=== PATIENT | female | born 1950 | race Native Hawaiian/Other Pacific Islander ===

== ENCOUNTER 2022-06-06 10:49 | Outpatient (CLI) | payer OTHER, SELFPAY | END 2022-06-06 10:50 | disposition home or self-care (01) | PROVIDERS: PCP Family Medicine; Visit Provider Surgery | DX: E11.622 Type 2 diabetes mellitus with other skin ulcer (principal); L97.812 Non-pressure chronic ulcer of other part of right lower leg with fat layer exposed | CPT/HCPCS: 87070; 97597; 99203 ==

== ENCOUNTER 2022-06-13 09:31 | Outpatient (CLI) | payer OTHER, SELFPAY | END 2022-06-13 09:32 | disposition home or self-care (01) | LOC: WOUND 09:31 | PROVIDERS: PCP Family Medicine; Visit Provider Surgery | DX: E11.622 Type 2 diabetes mellitus with other skin ulcer (principal); L97.812 Non-pressure chronic ulcer of other part of right lower leg with fat layer exposed; Z79.84 Long term (current) use of oral hypoglycemic drugs | CPT/HCPCS: 97597 ==

== ENCOUNTER 2022-07-25 11:04 | Outpatient (CLI) | payer OTHER, SELFPAY | END 2022-07-25 11:05 | disposition home or self-care (01) | LOC: WOUND 11:04 | PROVIDERS: PCP Family Medicine; Visit Provider Surgery | DX: E11.622 Type 2 diabetes mellitus with other skin ulcer (principal); L97.812 Non-pressure chronic ulcer of other part of right lower leg with fat layer exposed; R41.0 Disorientation, unspecified; Z79.84 Long term (current) use of oral hypoglycemic drugs; Z79.85 Long-term (current) use of injectable non-insulin antidiabetic drugs | CPT/HCPCS: 99213 ==

== ENCOUNTER 2022-07-25 12:02 | Observation (INO) | payer OTHER, SELFPAY ==
[2022-07-25] VITALS (11 sets, daily range): BP systolic 132–179; BP diastolic 44–162; PULSE 58–64; RESP 14–18; TEMP 36.1–36.9; O2SAT 96–98; BMI 46.0; BMI 47.5
--- NOTE | 2022-07-25 12:19 | ED_ITS ---
HPI - Neuro Symptoms/Deficit General Time Seen by Provider: 12:19 Date Seen: 07/25/22 Chief Complaint: Neuro Symptoms/Altered Deficit Stated Complaint: From wound clinic Time Seen by Provider: 07/25/22 12:08 Source: patient, RN notes reviewed, old records reviewed and other (spoke with Dr. Lin regarding patient) Mode of arrival: ambulatory Limitations: no limitations History of Present Illness HPI Narrative: This patient is a 71-year-old female sent up from wound clinic by Dr. Lin. Patient was there getting a recurrent wound treatment for a diabetic ulcer, is noted to be almost healed. Dr. Lin Was about 10 minutes behind getting into the room and the patient fell sleep. She woke up acutely confused, did not know where she was, was afraid, was telling DrSandy: She did not know who she was and she has met her on multiple occasions before. She was asking her to not touch her. Last week when she was in for her wound care she had told nursing staff that she was having memory issues and was afraid to tell anybody, was noted to have gotten lost coming to her appointment. They were going to get a current set of vitals and blood sugar on her just to make sure they were okay. Dr. Lin I reviewed that it certainly was appropriate to send her up here with this acute change, is likely probably a memory issue problems such as dementia but will do a workup for altered mental status. She could not get a hold of her listed next of kin. Patient states she knows where she is that, ?in this room?. When ask her where this room is, she states in the city. She believes she is in [place]. She states she lives in [place]. She cannot tell me what year it is, cannot tell me what month it is, cannot tell me what the season is. She states she resides with her baby, cannot give me her daughter's name. She is looking through her phone, scrolling through and not seeming to find what she wants. She cannot tell me what she is looking for when I ask her. At the end of the interaction she starts stating that she is afraid to , she does not want to . I do reassure her that I do not feel she is dying at this time. Onset (ago): unknown Related Data Allergies Allergy/AdvReac Type Severity Reaction Status Date / Time No Known Drug Allergies Allergy Verified 07/25/22 12:06 Review of Systems Status of ROS: Reports: 10 or more systems reviewed and unremarkable except as noted in History and below Narrative: Does complain of head pain in the back of her head, states she did fall but cannot tell me details or timing of this. PFSH PFS Social History Smoking Status: Unknown if ever smoked service: No Exam Const: Vital Signs, click to edit/add: Vital Signs - 24 hr 07/25/22 12:07 07/25/22 13:15 07/25/22 13:30 Temperature 97 F L 98.5 F Pulse Rate [Pulse Oximeter] 60 58 L Respiratory Rate 18 16 Blood Pressure Blood Pressure [Ri ght Forearm] 133/57 L 150/74 H Pulse Oximetry 96 98 98 Oxygen Delivery Me thod Room Air Room Air 07/25/22 16:03 Temperature Pulse Rate [Pulse Oximeter] Respiratory Rate Blood Pressure 179/162 H Blood Pressure [Ri ght Forearm] Pulse Oximetry Oxygen Delivery Me thod Documenting provider has reviewed patient's vital signs: yes Common normals: no apparent distress, healthy appearing, alert and well nourished General appearance: cooperative, comfortable, well kempt and well developed Nutritional appearance: overweight Orientation/consciousness: Yes awake and Yes oriented to person HENMT: Common normals: normocephalic, head/scalp atraumatic, hearing grossly normal bilaterally, external ears normal, external nose normal, nasal mucous membranes and turbinates normal, moist oral mucous membranes, oropharynx normal, dentition normal and gingiva normal Head and scalp: normocephalic and atraumatic Nose: external nose normal and nasal mucous membranes and turbinates normal External ear: external ears normal Eye: Common normals: PERRL, EOMs intact bilaterally, conjunctivae normal, no scleral icterus and normal visual avila by confrontation Conjunctiva: conjunctiva(e) normal Pupil: PERRL Neck & C-Spine: Common normals: full ROM, no lymphadenopathy, supple, no meningeal signs, no JVD and thyroid normal Thyroid: thyroid normal Lymph: Lymphatic: no lymphadenopathy noted Resp: Common normals: normal respiratory effort, no retractions, no use of accessory muscles and clear to auscultation bilaterally Effort & inspection: able to speak in complete sentences Auscultation: clear to auscultation bilaterally Cardio: Common normals: no JVD, regular rate, regular rhythm, S1 normal heart sound, S2 normal heart sound, no gallops, no clicks and no murmurs Rate: regular rate Rhythm: regular rhythm Heart sounds: S1 normal and S2 normal GI: Common normals: Normal to inspection, nondistended, normoactive bowel sounds present, soft to palpation, non-tender, no hepatosplenomegaly and no masses Palpation: soft and no hepatosplenomegaly Extremity: Common normals: no calf tenderness and no pedal edema Other: Dressing over upper right lower extremity, not removed as this was just seen by wound clinic. Neuro: [place] Coma Scale: document GCS findings Nancy coma scale eye opening: Spontaneous (4) Nancy coma scale verbal response: Confused (4) Nancy coma scale motor response: Obey commands (6) [place] coma scale total score: 14 Common normals: CN's II-XII intact bilaterally, moves all extremities, no focal motor deficits, no sensory deficits noted and gait normal Sensorium/orientation: awake, alert and oriented to person Meningeal signs: no meningeal signs Speech: speech normal Motor exam: strength 5/5 throughout, no pronator drift, no tremor noted, no asterixis, no fasciculations and muscle tone normal throughout Other: Nursing staff notes she is doing some lip pursing type behaviors but I do not note this. Does not have continued blinking with glabellar tap. Psych: Common normals: cooperative and speech normal Appearance: well kempt Speech: normal speech Course Course Hospital Course: Patient is a 71-year-old female with altered mental status with acute memory issues. Her motor and sensory exam is otherwise normal. Will get a head CT to rule out acute intracranial trauma. Will do full complement of labs. My concern is that this is probably manifestation of memory issues such as dementia. We will attempt to contact her daughter again and will continue to do so till we are able to him make contact with her. Is obvious that this patient should not be driving. Consultations Consultation #1: Spoke with hospitalist Dr. Pena whom the case was reviewed with. Patient has been noting to be scrolling through her phone with nursing staff, showing a picture of her dog whom she actually lives with. Nursing staff actually talk to her daughter. She lives alone with her dog, has been living independently. She still has no idea where she is that, not oriented be on herself. She was unable to give nursing staff the name of her dog. Plan will be for admission for PT OT, consideration of MRI in the morning if felt to be appropriate per hospitalist. Given her current state, she is not safe to discharge to home alone and do think she needs more evaluation including functional assessments with PT and OT. Time: 16:12 Vital Signs Vital signs: Initial Vital Signs Temperature 97 F L 07/25/22 12:07 Temperature Source Temporal Artery Scan 07/25/22 12:07 Pulse Rate 60 07/25/22 12:07 Pulse Rhythm Regular 07/25/22 12:07 Respiratory Rate 18 07/25/22 12:07 Blood Pressure 133/57 L 07/25/22 12:07 Blood Pressure Mean 82 07/25/22 12:07 Blood Pressure Position Supine 07/25/22 12:07 Pulse Oximetry 96 07/25/22 12:07 Oxygen Delivery Method Room Air 07/25/22 12:07 Vital Signs Temperature 97 F L 07/25/22 12:07 Pulse Rate 60 07/25/22 12:07 Respiratory Rate 18 07/25/22 12:07 Blood Pressure 133/57 L 07/25/22 12:07 Pulse Oximetry 96 07/25/22 12:07 Oxygen Delivery Method Room Air 07/25/22 12:07 Temperature 98.5 F 07/25/22 13:30 Pulse Rate 58 L 07/25/22 13:30 Respiratory Rate 16 07/25/22 13:30 Blood Pressure 179/162 H 07/25/22 16:03 Pulse Oximetry 98 07/25/22 13:30 Oxygen Delivery Method Room Air 07/25/22 13:30 MDM - Neuro Symptoms/Deficit Lab Data Attestation: I reviewed the patient's lab results. Labs: Lab Results 07/25/22 07/25/22 07/25/22 Range/Units 12:30 13:15 15:40 WBC 9.73 (4.50-11.00) K/uL RBC 4.18 (4.00-5.20) m/uL Hgb 12.1 (12.0-16.0) gm/dL Hct 37.5 (33.0-51.0) % MCV 90 (80-100) fL MCH 29 (26-34) pg MCHC 32 (32-36) gm/dL RDW Coeff of Carie 12.4 (11.5-15.5) % Plt Count 350 (140-440) K/uL Neut % (Auto) 58.4 (42.0-72.0) % Lymph % (Auto) 34.2 (20-44) % [place] % (Auto) 5.7 (0.0-11.0) % Eos % (Auto) 1.3 (0.0-7.0) % Baso % (Auto) 0.2 (0.0-3.0) % Neut # (Auto) 5.68 (1.7-7.0) K/uL Lymph # (Auto) 3.33 H (0.90-2.90) K/uL [place] # (Auto) 0.60 (0.00-0.90) K/UL Eos # (Auto) 0.13 (0.00-0.50) K/uL Baso # (Auto) 0.02 (0.00-0.30) K/uL Sodium 138 (135-149) mmol/L Potassium 3.8 (3.6-5.1) mmol/L Chloride 102 (96-114) mmol/L Carbon Dioxide 26 (20-32) mmol/L BUN 20 (7-30) mg/dL Creatinine 0.7 (0.5-1.5) mg/dL Estimated Creat Clear 82.47 Estimated GFR 93 ml/min Glucose 154 H (60-115) mg/dL Lactate 1.1 (0.5-1.9) mmol/L Calcium 9.5 (8.4-10.6) mg/dL Total Bilirubin 0.3 (0.1-1.5) mg/dL AST 20 (12-35) U/L ALT 20 (4-35) U/L Alkaline Phosphatase 104 (40-150) U/L C-Reactive Protein 0.8 (0.5-1.0) mg/dL Total Protein 7.4 (6.0-8.3) g/dL Albumin 4.3 (3.3-5.0) g/dL TSH 2.130 (0.270-4.200) uIU/mL Urine Color Yellow (Yellow) Urine Appearance Slightly Cloudy A (Clear) Urine pH 5.5 (5.0-8.5) Ur Specific [place] 1.025 (1.000-1.030) Urine Protein Negative (Negative) Urine Glucose (UA) Trace A (Negative) Urine Ketones Negative (Negative) Urine Blood Negative (Negative) Urine Nitrite Negative (Negative) Urine Bilirubin Negative (Negative) Urine Urobilinogen 0.2 (0.2-1.0) Ur Leukocyte Esterase Negative (Negative) Urine RBC 0-2 (0-2) Urine WBC 2-5 (0-5) Ur Squamous Epith Cells Moderate A (None-Few) Urine Bacteria Few A (None) Ethyl Alcohol < 0.01 L (0.01-0.03) % Lab Acknowledgement 07/25/22 Range/Units Unknown WBC (4.50-11.00) K/uL RBC (4.00-5.20) m/uL Hgb (12.0-16.0) gm/dL Hct (33.0-51.0) % MCV (80-100) fL MCH (26-34) pg MCHC (32-36) gm/dL RDW Coeff of Carie (11.5-15.5) % Plt Count (140-440) K/uL Neut % (Auto) (42.0-72.0) % Lymph % (Auto) (20-44) % [place] % (Auto) (0.0-11.0) % Eos % (Auto) (0.0-7.0) % Baso % (Auto) (0.0-3.0) % Neut # (Auto) (1.7-7.0) K/uL Lymph # (Auto) (0.90-2.90) K/uL [place] # (Auto) (0.00-0.90) K/UL Eos # (Auto) (0.00-0.50) K/uL Baso # (Auto) (0.00-0.30) K/uL Sodium (135-149) mmol/L Potassium (3.6-5.1) mmol/L Chloride (96-114) mmol/L Carbon Dioxide (20-32) mmol/L BUN (7-30) mg/dL Creatinine (0.5-1.5) mg/dL Estimated Creat Clear Estimated GFR ml/min Glucose (60-115) mg/dL Lactate (0.5-1.9) mmol/L Calcium (8.4-10.6) mg/dL Total Bilirubin (0.1-1.5) mg/dL AST (12-35) U/L ALT (4-35) U/L Alkaline Phosphatase (40-150) U/L C-Reactive Protein (0.5-1.0) mg/dL Total Protein (6.0-8.3) g/dL Albumin (3.3-5.0) g/dL TSH (0.270-4.200) uIU/mL Urine Color (Yellow) Urine Appearance (Clear) Urine pH (5.0-8.5) Ur Specific [place] (1.000-1.030) Urine Protein (Negative) Urine Glucose (UA) (Negative) Urine Ketones (Negative) Urine Blood (Negative) Urine Nitrite (Negative) Urine Bilirubin (Negative) Urine Urobilinogen (0.2-1.0) Ur Leukocyte Esterase (Negative) Urine RBC (0-2) Urine WBC (0-5) Ur Squamous Epith Cells (None-Few) Urine Bacteria (None) Ethyl Alcohol (0.01-0.03) % Lab Acknowledgement Test Added Imaging Data CT scan - head: Attestation: I have reviewed the pertinent imaging results. ECG Data Attestation: I personally reviewed and interpreted this ECG as follows: (Sinus rhythm, 63 beats per minute. No ischemia, no infarct. QT corrected 433 milliseconds.) ECG interpretation date: 07/25/22 ECG interpretation time: 12:52 Discharge Plan Discharge Clinical Impression: Altered mental status Patient Disposition: Admitted As Inpatient Condition: Unchanged Follow Up/Referrals: Kacie Munguia MD [Primary Care Provider] -
--- NOTE | 2022-07-25 12:29 | CRLHL7_ITS ---
For Patients: As a result of the Cures Act, medical imaging exams and procedure reports are released immediately into your electronic medical record. You may view this report before your referring provider. If you have questions, please contact your health care provider. INDICATION: AMS, memory loss. History of meningioma.. TECHNIQUE: CT head without contrast. COMPARISON: None. FINDINGS: CSF spaces: Within normal limits for age. Brain parenchyma and extra-axial spaces: The velasco-white differentiation is normal. No sign of mass, hemorrhage, or midline shift. No extra-axial fluid collection. 2 centimeter mass at the left vertex slightly hyperdense with possible internal small calcifications. Dural tail is noted extending towards the sagittal sinus. No adjacent vasogenic edema identified. This lesion is consistent with provided history of meningioma. Skull base and calvarium: The visualized paranasal sinuses and mastoid air cells demonstrate no acute or significant findings. The visualized orbits are grossly unremarkable. No skull fractures. IMPRESSION: No acute intracranial process identified. Meningioma at the left posterior vertex. Please note that all CT scans at this facility use dose modulation, iterative reconstruction, and/or weight-based dosing when appropriate to reduce radiation dose to as low as reasonably achievable. Dictated by Octavia Jones MD @ 07/25/2022 2:28:33 PM (Electronically Signed)
[2022-07-25 13:13] LABS: Basophils Absolute Auto 0.02 K/uL (0.00-0.30); Basophils Percent Auto 0.2 % (0.0-3.0); Eosinophils Absolute Auto 0.13 K/uL (0.00-0.50); Eosinophils Percent Auto 1.3 % (0.0-7.0); Hematocrit 37.5 % (33.0-51.0); Hemoglobin* 12.1 gm/dL (12.0-16.0); Immature Granulocytes Abs Auto 0.02 K/uL (0.00-0.30); Immature Granulocytes Pct Auto 0.2 %; Lymphocytes Absolute Auto 3.33 K/uL (0.90-2.90); Lymphocytes Percent Auto 34.2 % (20-44); Mean Corpuscular HGB Conc 32 gm/dL (32-36); Mean Corpuscular Hemoglobin 29 pg (26-34); Mean Corpuscular Volume 90 fL (80-100); Monocytes Percent Auto 5.7 % (0.0-11.0); Neutrophils Absolute Auto 5.68 K/uL (1.7-7.0); Neutrophils Percent Auto 58.4 % (42.0-72.0); Platelet Count* 350 K/uL (140-440); RDW Coefficient of Variation % 12.4 % (11.5-15.5); Red Blood Count 4.18 m/uL (4.00-5.20); White Blood Count* 9.73 K/uL (4.50-11.00)
[2022-07-25 13:32] LABS: Albumin* 4.3 g/dL (3.3-5.0); Chloride* 102 mmol/L (96-114); Potassium* 3.8 mmol/L (3.6-5.1); Sodium* 138 mmol/L (135-149)
[2022-07-25 13:34] LABS: Bilirubin Total* 0.3 mg/dL (0.1-1.5); Creatinine* 0.7 mg/dL (0.5-1.5); Est. Creatinine Clearance* 82.47; Estimated Glomerular Filt Rate 93 ml/min
[2022-07-25 13:35] LABS: Alanine Aminotransferase* 20 U/L (4-35); Alkaline Phosphatase* 104 U/L (40-150); Aspartate Amino Transferase* 20 U/L (12-35); Blood Urea Nitrogen* 20 mg/dL (7-30); Calcium* 9.5 mg/dL (8.4-10.6); Carbon Dioxide* 26 mmol/L (20-32); Glucose* 154 mg/dL (60-115); Total Protein* 7.4 g/dL (6.0-8.3)
[2022-07-25 13:38] LABS: C Reactive Protein* 0.8 mg/dL (0.5-1.0)
--- NOTE | 2022-07-25 14:14 | PC.NURSE ---
pt has been resting, repeats I don't want to when Nurse in room, not responding appropriately to questions. When asked why or how she got to ED pt states I don't know, I was just here.
[2022-07-25 14:17] LABS: Ethanol* < 0.01 % (0.01-0.03)
[2022-07-25 14:25] LABS: Slide Review Reflex No
[2022-07-25 14:35] LABS: Lactate* 1.1 mmol/L (0.5-1.9)
--- NOTE | 2022-07-25 15:00 | PC.NURSE ---
spoke with patient's daughter Jenny, she is driving out of town currently. states pt had fall approx one month ago and has been having memory issues since. [facility] pt was not seen following fall. Pt lives alone per daughter. Daughter's name is Jenny # . Would like to be updated once all labs/CT results are completed.
[2022-07-25 15:48] LABS: Appearance Urine Slightly Cloudy (Clear); Bilirubin Urine Negative (Negative); Blood Urine Negative (Negative); Color Urine Yellow (Yellow); Glucose Urine Trace (Negative); Ketones Urine Negative (Negative); Leukocyte Esterase Urine Negative (Negative); Nitrite Urine Negative (Negative); Protein Urine Negative (Negative); Specific Gravity Urine 1.025 (1.000-1.030); Urobilinogen Urine 0.2 (0.2-1.0); pH Urine 5.5 (5.0-8.5)
[2022-07-25 16:08] LABS: Bacteria Urine Few; RBC Urine 0-2 (0-2); Squamous Epithelial Cell Urine Moderate (None-Few)
--- NOTE | 2022-07-25 16:49 | ED.NURSE ---
Pt Daughter, Jenny ([phone]) updated via at 1630, stating pt is staying at hospital overnight. Daughter would like update again in evening by staff. This information passed onto adjunct faculty for medical terminology
[2022-07-25 16:52] LABS: Lab Add On Test New Spec Needed
--- NOTE | 2022-07-25 16:58 | PM.IMHP1 ---
Hospitalist- H&P: HPI History of Present Illness Date Seen: 07/25/22 Chief complaint: From wound clinic Narrative: ADMISSION HISTORY AND PHYSICAL - HOSPITALIST Chief Complaint: Pamela is confused; mildly agitated HPI: 71-year-old female was present for a wound care appointment with Dr. Lin. Dr. Lin has been treating this patient since May of 2022 for a large chronic wound on her right anterior knee. The wound has been healing nicely. When Dr. Lin entered the room today, patient seem to abruptly awake from sleep. She was confused, nervous and this persisted while the treatment team tried to orient her and assess her. She was brought over to the ED when things did not normalize. No sign of acute CVA. She is having word finding difficulty in the ED and is confused about events and where she is today. She does report a history of getting confused in past. No chest pain, SOB, abdominal pain, headache, trouble swallowing, fever/chills, anxiety out of the norm. No N/V/D. ER COURSE: Head CT negative labs all reassuring vitals reassuring CODE STATUS: FULL CODE EMERGENCY CONTACT PLAN: DaughterJenny, at [phone] I've updated the PFSH, medications and allergies in the [place]se tabs. INVESTIGATIONS: LABS/MICRO/ECG/IMAGING 132/51. Pulse 61. Rest per 16. Afebrile. O2 sat 98% on room air. CBC is unremarkable. Normal WBC count, normal hemoglobin, normal platelets. Normal electrolytes and renal function. Glucose 154. A1c 6.7 Normal lactate Total CK 63 TSH normal B12, folate, thiamin all pending Troponin negative Ammonia pending. UA slightly cloudy. Negative nitrite. Negative leukocyte esterase. 2-5 white blood cells. Urine culture pending. Alcohol [address] No acute intracranial process identified. Meningioma at the left posterior vertex. Wound culture from May was skin molina EKG shows normal sinus rhythm REVIEW OF SYSTEMS: 12-point ROS completed with patient and negative unless otherwise stated in HPI or below. PHYSICAL EXAM: CONSTITUTIONAL: Pretty clear; knows she is in [facility] but not sure why she was taken from clinic to the ED. Does not really remember the clinic appt. VITAL SIGNS: see record. HEENT: Normocephalic, atraumatic. PERRL, EOMI, conjunctivae pink, no scleral icterus. Ears and nose externally normal. Pharynx normal. NECK: No JVD. No carotid bruit, no thyromegaly, no adenopathy. CHEST: Clear to auscultation bilaterally HEART: S1 and S2 normal. No harsh murmurs. Edema MUSCULOSKELETAL: No gross joint deformity or swelling. NEURO: Cranial nerves intact. Grossly intact. No asymmetric findings. SKIN: right knee, anterior, healing superficial ulceration. compared to pictures greatly improved. PSYCHIATRIC: Euthymic. ADMIT TO MEDSURG: FLOOR CARE DVT: Lovenox GI: PO intake Time spent: 70 minutes examining patient, conferring with family and patient, care staff, developing care plan [facility] Medical History (Updated 07/25/22 @ 17:50 by Thao Pena MD) Bee sting allergy ?Z91.030 - Bee allergy status (ICD-10) Nephrolithiasis ?N20.0 - Calculus of kidney (ICD-10) Hyperlipidemia ?E78.5 - Hyperlipidemia, unspecified (ICD-10) Chronic anxiety ?F41.9 - Anxiety disorder, unspecified (ICD-10) Neuropathy ?G62.9 - Polyneuropathy, unspecified (ICD-10) Dementia ?F03.90 - Unspecified dementia, unspecified severity, without behavioral disturbance, psychotic disturbance, mood disturbance, and anxiety (ICD-10) Hypertension ?I10 - Essential (primary) hypertension (ICD-10) Osteoarthritis ?M19.90 - Unspecified osteoarthritis, unspecified site (ICD-10) Morbid obesity ?E66.01 - Morbid (severe) obesity due to excess calories (ICD-10) LENNY (obstructive sleep apnea) ?G47.33 - Obstructive sleep apnea (adult) (pediatric) (ICD-10) CHF with unknown LVEF ?I50.9 - Heart failure, unspecified (ICD-10) Asthma ?J45.909 - Unspecified asthma, uncomplicated (ICD-10) Type 2 diabetes mellitus ?E11.9 - Type 2 diabetes mellitus without complications (ICD-10) Surgical History (Updated 07/25/22 @ 17:43 by Thao Pena MD) History of urethral stent Prolapse of anterior vaginal wall ?N81.10 - Cystocele, unspecified (ICD-10) History of bladder surgery ?Z98.890 - Other specified postprocedural states (ICD-10) History of section ?Z98.891 - History of uterine scar from previous surgery (ICD-10) Social History What is your current living situation: I presently have a place to live Problems where you live: no known problems Problems where you live details: N/A In the past 12 months, utilities in danger of being shut off: no In the past 12 mos, have been you worried that your food would run out before you had money to buy more?: never true In the past 12 mos, the food you bought just didn't last and you didn't have money to buy more?: never true Highest level of school completed/degree received: high school graduate Smoking Status: Former smoker Second hand tobacco smoke exposure: No How often do you have a drink containing alcohol: never How often do you have six or more drinks on one occasion: Never AUDIT-C Alcohol total score: 0 Non-prescribed substance use: denies use Caffeine: Yes (cup every other day) How often does anyone, including family, friends and others, physically hurt you: How often does anyone, including family, friends and others, insult or talk down to you: How often does anyone, including family, friends and others, threaten you with harm: How often does anyone, including family, friends and others, scream or curse at you: service: No Meds Home Medications and Allergies Allergies Allergy/AdvReac Type Severity Reaction Status Date / Time bee venom protein (honey bee) Allergy Unknown Verified 07/25/22 17:15 honey Allergy Unknown Verified 07/25/22 17:15 Sulfa (Sulfonamide Allergy Unknown Verified 07/25/22 17:15 Antibiotics) Exam Const: Vital Signs, click to edit/add: Vital Signs - 24 hr 07/25/22 12:07 07/25/22 13:15 07/25/22 13:30 Temperature 97 F L 98.5 F Pulse Rate Pulse Rate [Pulse Oximeter] 60 58 L Respiratory Rate 18 16 Blood Pressure Blood Pressure [Ri ght Forearm] 133/57 L 150/74 H Pulse Oximetry 96 98 98 Oxygen Delivery Me thod Room Air Room Air 07/25/22 16:03 07/25/22 16:32 07/25/22 16:45 Temperature Pulse Rate 61 Pulse Rate [Pulse Oximeter] Respiratory Rate Blood Pressure 179/162 H 132/51 L Blood Pressure [Ri ght Forearm] Pulse Oximetry Oxygen Delivery Me thod Hospitalist - H&P: Result Labs Labs: Short CBC 07/25/22 Range/Units 13:15 WBC 9.73 (4.50-11.00) K/uL Hgb 12.1 (12.0-16.0) gm/dL Hct 37.5 (33.0-51.0) % Plt Count 350 (140-440) K/uL BMP 07/25/22 12:30 Sodium 138 Potassium 3.8 Chloride 102 Carbon Dioxide 26 BUN 20 Creatinine 0.7 Glucose 154 H Calcium 9.5 Liver Function 07/25/22 Range/Units 12:30 Total Bilirubin 0.3 (0.1-1.5) mg/dL AST 20 (12-35) U/L ALT 20 (4-35) U/L Alkaline Phosphatase 104 (40-150) U/L Albumin 4.3 (3.3-5.0) g/dL Urine 07/25/22 Range/Units 15:40 Urine Color Yellow (Yellow) Urine Appearance Slightly Cloudy A (Clear) Urine pH 5.5 (5.0-8.5) Ur Specific [place] 1.025 (1.000-1.030) Urine Protein Negative (Negative) Urine Glucose (UA) Trace A (Negative) Assessment and Plan Assessment and plan (1) Altered mental status: Problem comment: ddx: worsening/fluctuating dementia of Ahlemeier's type, hypoglycemia, sleep deprivation observe overnight, brain MR in the am, OT/PT. continue home meds. telemetry. echo to be considered by day team if needed. Status: Acute (2) Dementia: Problem comment: awaiting records but med list reflects: seroquel 25mg at night donepezil 10mg at night namenda 10mg BID Status: Acute (3) Type 2 diabetes mellitus: Problem comment: A1C is 6.7 tonight trulicity, metformin -continue home meds, cover with SSI as needed. accuchecks ordered. Status: Acute (4) Chronic, continuous use of opioids: Problem comment: 5 mg norco 4x a day - chronic back pain. Status: Acute (5) Chronic sciatica: Problem comment: opioid dependent. no hx of surgery. Status: Acute (6) Chronic wound of extremity: Problem comment: right knee; started in 1/23, referred to wound care clinic in May. Dr. Lni advised dressing and wound care. much improved by July 2022. Status: Acute (7) Hypertension: Problem comment: metoprolol XL 25mg daily Status: Acute (8) LENNY (obstructive sleep apnea): Status: Acute (9) CHF with unknown LVEF: Problem comment: unclear history, no meds other than a betablocker and aspirin that correlate Status: Acute (10) Asthma: Problem comment: unclear hx - no meds on list Status: Acute (11) Hyperlipidemia: Problem comment: statin therapy Status: Acute (12) Chronic anxiety: Status: Acute (13) Morbid obesity: Status: Acute
[2022-07-25 17:08] LABS: Creatine Kinase* 63 U/L (41-117)
[2022-07-25 17:11] LABS: Hemoglobin A1C* 6.69 % (0-5.6)
[2022-07-25 17:25] LABS: Troponin I* < 0.01 ng/mL (0.01-0.04)
[2022-07-25 17:42] LABS: Ammonia* < 9.0 umol/L (13.1-30.0)
[2022-07-25 18:02] LABS: Vitamin B12* > 1000 pg/mL (243-894)
[2022-07-25 18:10] LABS: Amphetamine Screen Urine Negative (Negative); Barbiturate Screen Urine Negative (Negative); Benzodiazepines Screen Urine Negative (Negative); Cannabinoid Screen Urine Negative (Negative); Cocaine Screen Urine Negative (Negative); Methadone Screen Urine Negative (Negative); Methamphetamines Screen Urine Negative (Negative); Opiate Screen Urine Negative (Negative); Oxycodone Screen Urine Negative (Negative); Phencyclidine Screen Urine Negative (Negative)
--- NOTE | 2022-07-25 18:18 | PC.NURSE ---
Patient arrived to floor about 1650. Patient is pleasant and cooperative. Patient alert and oriented, could not report why she is here or time. Patient is vitally stable, lungs clear, BS WNL, IV intact. Patient independent/SBA. Patient rates lower back pain 5/10. Neuros intact. Tele=NSR. Patient blood sugar 105. Patient has wound below right knee with mepilex applied, C/D/I.
[2022-07-25 18:30] LABS: Tricyclic Antidepressant Urine POSITIVE (Negative)
[2022-07-25] MEDS: QUETIAPINE 25 MG TABLET PO (20:54)
[2022-07-25] MEDS: MEMANTINE HCL 10 MG TABLET PO (20:54)
[2022-07-25] MEDS: HYDROCODONE-ACETAMIN 5-325 MG 1 TAB PO (20:54)
[2022-07-25] MEDS: SIMVASTATIN 40 MG TABLET PO (20:54)
[2022-07-25] MEDS: ENOXAPARIN 40 MG/0.4 ML INJ SUBCUT (20:54)
[2022-07-25] MEDS: DONEPEZIL 10 MG TABLET PO (20:54)
[2022-07-25] MEDS: SODIUM CHLORIDE 0.9 % (FLUSH) 10 ML SYRINGE 5 ML IVF (20:55)
[2022-07-25] MEDS: METFORMIN ER 500 MG PO (20:55)
[2022-07-25] MEDS: CALCIUM CARBONATE 500 MG TABLET PO (20:55)
[2022-07-25] MEDS: POTASSIUM CHLORIDE 10 MEQ CAPSULE ER 20 MEQ PO (20:55)
[2022-07-26 03:00] VITALS: BP 147/67; PULSE 62; RESP 16; TEMP 36.4; O2SAT 96
[2022-07-26] MEDS: HYDROCODONE-ACETAMIN 5-325 MG 1 TAB PO ×2 (04:03→10:40)
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
[2022-07-26 08:05] VITALS: BP 128/54; PULSE 60; RESP 16; TEMP 36.4; O2SAT 97
[2022-07-26] MEDS: ASPIRIN 81 MG TABLET EC PO (09:44)
[2022-07-26] MEDS: METFORMIN ER 500 MG PO (09:44)
[2022-07-26] MEDS: POTASSIUM CHLORIDE 10 MEQ CAPSULE ER 20 MEQ PO (09:44)
[2022-07-26] MEDS: MEMANTINE HCL 10 MG TABLET PO (09:45)
[2022-07-26] MEDS: METOPROLOL SUCCINATE (XL) 25 MG TAB PO (09:45)
[2022-07-26] MEDS: CALCIUM CARBONATE 500 MG TABLET PO (09:45)
[2022-07-26 11:15] VITALS: BP 143/74; PULSE 62; RESP 18; TEMP 36.7; O2SAT 95
[2022-07-26 11:38] VITALS: BP 132/51; PULSE 58; RESP 16; TEMP 36.4
--- NOTE | 2022-07-26 12:14 | PM.DS1 ---
DS: Providers Provider Date Seen: 07/26/22 Date of admission: 07/25/22 16:44 Primary care physician: Kacie Munguia MD Admitting Clinician: Thao Pena MD Consults: Therapy teams Attending Physician on discharge: Hawa Mishra MD Date of Discharge: 07/26/22 DS: Diagnosis Discharge Diagnosis (1) Altered mental status: Status: Acute Problem details: - ddx: worsening/fluctuating dementia of Alzhemeier's type, delirium, stress response, hypoglycemia, sleep deprivation - patient back to baseline on hospital day 1, defers MRI or further workup - has close relationship with PCP and will f/u with her or one of her partners to discuss recommendations (driving evaluation, medication changes, etc) (2) Dementia: Status: Acute Problem details: - patient on Seroquel, Donepezil, Namenda with mild memory impairment noted during stay - daughter Jenny aware of diagnosis and recommendation of no driving until formal evaluation (3) Type 2 diabetes mellitus: Status: Acute Problem details: - A1C is 6.7 - on Trulicity, metformin (4) Chronic, continuous use of opioids: Status: Acute Problem details: - 5 mg norco 4x a day for chronic back pain (5) Chronic wound of extremity: Status: Acute Problem details: - right knee; started in 03/12, referred to wound care clinic in May, followed by Dr. Lin (6) Hypertension: Status: Acute Problem details: - metoprolol XL 25mg daily (7) Hyperlipidemia: Status: Acute Problem details: - on statin (8) Chronic anxiety: Status: Acute (9) Morbid obesity: Status: Acute DS: Summary Hospital Course Hospital Course: Pamela is a very pleasant 71-year-old female with a history of cognitive impairment (on Seroquel, Aricept, Namenda) who was brought to the emergency room from the wound clinic yesterday for altered mental status and acute memory loss. Imaging and labs in the emergency room were reassuring, and patient was back to baseline on hospital day 1. During stay, patient was seen by our therapy teams, who recommend no driving at this time given patient's dementia. Patient and daughter both verbalized understanding of this recommendation. We also discussed discontinuation of her Ambien; she is pre-contemplative regarding this recommendation. Upon discharge, patient deferred MRI and will follow-up with PCP. Status at Discharge Overall status at discharge: patient is progressing back to baseline Time Spent with Patient Time attestation: Total time spent providing and/or coordinating discharge services: Time spent: Greater than 30 minutes Specific discharge activities: Family updates (daughter Jenny by phone), medication reconciliation, review of recommendations Exam Narrative: Exam Narrative: GEN: Alert and oriented, nontoxic in appearance, answering questions appropriately HEENT: Normal external ears, EOMIs bilaterally, no scleral icterus CV: RRR, soft systolic murmur heard best at left sternal border, no radiation R: LCTA bilaterally without concerning wheezing, rales, or rhonchi Skin: No concerning skin lesions or rashes on exposed skin (LE wound not formally examined upon d/c given patient's outpatient wound care program) Neuro: No focal deficits, ambulating with a walker Psych: Intermittent memory loss evident, no anxiety or agitation Const: Vital Signs, click to edit/add: Vital Signs - 24 hr 07/25/22 13:15 07/25/22 13:30 07/25/22 16:03 Temperature 98.5 F Pulse Rate Pulse Rate [Pulse Oximeter] 58 L Respiratory Rate 16 Blood Pressure 179/162 H Blood Pressure [Ri ght Arm] Blood Pressure [Ri ght Forearm] 150/74 H Pulse Oximetry 98 98 Oxygen Delivery Me thod Room Air 07/25/22 16:32 07/25/22 16:45 07/25/22 16:59 Temperature Pulse Rate 61 Pulse Rate [Pulse Oximeter] Respiratory Rate 14 Blood Pressure 132/51 L Blood Pressure [Ri ght Arm] Blood Pressure [Ri ght Forearm] Pulse Oximetry 98 Oxygen Delivery Me thod Room Air 07/25/22 16:59 07/25/22 17:10 07/25/22 17:22 Temperature 97.7 F Pulse Rate 58 L Pulse Rate [Pulse Oximeter] 58 L Respiratory Rate 14 14 Blood Pressure Blood Pressure [Ri ght Arm] 138/65 Blood Pressure [Ri ght Forearm] Pulse Oximetry 98 98 Oxygen Delivery Mo thod Room Air Room Air 07/25/22 19:00 07/25/22 23:00 07/25/22 23:00 Temperature 97.5 F L 97.5 F L Pulse Rate Pulse Rate [Pulse Oximeter] 64 60 Respiratory Rate 18 16 Blood Pressure Blood Pressure [Ri ght Arm] 132/44 L 147/62 H Blood Pressure [Ri ght Forearm] Pulse Oximetry 97 96 96 Oxygen Delivery Me thod Room Air Room Air 07/26/22 03:00 07/26/22 08:05 07/26/22 08:05 Temperature 97.6 F Pulse Rate Pulse Rate [Pulse Oximeter] 62 60 Respiratory Rate 16 16 Blood Pressure Blood Pressure [Ri ght Arm] 147/67 H Blood Pressure [Ri ght Forearm] Pulse Oximetry 96 97 Oxygen Delivery Me thod Room Air 07/26/22 08:05 07/26/22 11:38 Temperature 97.5 F L 97.5 F L Pulse Rate 58 L Pulse Rate [Pulse Oximeter] 60 Respiratory Rate 16 16 Blood Pressure 132/51 L Blood Pressure [Ri ght Arm] 128/54 L Blood Pressure [Ri ght Forearm] Pulse Oximetry 97 Oxygen Delivery Me thod Room Air DS: Data Data Completed and Pending Labs on day of discharge: Labs from last 24 hours 07/25/22 07/25/22 07/25/22 Unknown 17:08 16:46 WBC RBC Hgb Hct MCV MCH MCHC RDW Coeff of Carie Plt Count Neut % (Auto) Lymph % (Auto) Reynolds % (Auto) Eos % (Auto) Baso % (Auto) Neut # (Auto) Lymph # (Auto) Reynolds # (Auto) Eos # (Auto) Baso # (Auto) Sodium Potassium Chloride Carbon Dioxide BUN Creatinine Estimated Creat Clear Estimated GFR Glucose Hemoglobin A1c Lactate Calcium Total Bilirubin AST ALT Alkaline Phosphatase Ammonia < 9.0 L Total Creatine Kinase Troponin I C-Reactive Protein Total Protein Albumin Whole Bld Vitamin B1 Vitamin B12 RBC Fol Charisma for Serum Pending TSH Urine Color Urine Appearance Urine pH Ur Specific Lyons Urine Protein Urine Glucose (UA) Urine Ketones Urine Blood Urine Nitrite Urine Bilirubin Urine Urobilinogen Ur Leukocyte Esterase Urine RBC Urine WBC Ur Squamous Epith Cells Urine Bacteria Urine Opiates Screen Ur Oxycodone Screen Urine Methadone Screen Ur Propoxyphene Screen Ur Barbiturates Screen U Tricyclic Antidepress Ur Phencyclidine Scrn Ur Amphetamines Screen U Methamphetamines Scrn U Benzodiazepines Scrn Urine Cocaine Screen U Marijuana (THC) Screen Ur Drug Screen Comment Ethyl Alcohol Lab Acknowledgement Test Added New Spec Needed 07/25/22 07/25/22 07/25/22 15:40 13:15 12:30 WBC 9.73 RBC 4.18 Hgb 12.1 Hct 37.5 MCV 90 MCH 29 MCHC 32 RDW Coeff of Carie 12.4 Plt Count 350 Neut % (Auto) 58.4 Lymph % (Auto) 34.2 Reynolds % (Auto) 5.7 Eos % (Auto) 1.3 Baso % (Auto) 0.2 Neut # (Auto) 5.68 Lymph # (Auto) 3.33 H Reynolds # (Auto) 0.60 Eos # (Auto) 0.13 Baso # (Auto) 0.02 Sodium 138 Potassium 3.8 Chloride 102 Carbon Dioxide 26 BUN 20 Creatinine 0.7 Estimated Creat Clear 82.47 Estimated GFR 93 Glucose 154 H Hemoglobin A1c 6.69 H Lactate 1.1 Calcium 9.5 Total Bilirubin 0.3 AST 20 ALT 20 Alkaline Phosphatase 104 Ammonia Total Creatine Kinase 63 Troponin I < 0.01 L C-Reactive Protein 0.8 Total Protein 7.4 Albumin 4.3 Whole Bld Vitamin B1 Pending Vitamin B12 > 1000 H RBC Fol Charisma for Serum TSH 2.130 Urine Color Yellow Urine Appearance Slightly Cloudy A Urine pH 5.5 Ur Specific Lyons 1.025 Urine Protein Negative Urine Glucose (UA) Trace A Urine Ketones Negative Urine Blood Negative Urine Nitrite Negative Urine Bilirubin Negative Urine Urobilinogen 0.2 Ur Leukocyte Esterase Negative Urine RBC 0-2 Urine WBC 2-5 Ur Squamous Epith Cells Moderate A Urine Bacteria Few A Urine Opiates Screen Negative Ur Oxycodone Screen Negative Urine Methadone Screen Negative Ur Propoxyphene Screen Negative Ur Barbiturates Screen Negative U Tricyclic Antidepress POSITIVE A* Ur Phencyclidine Scrn Negative Ur Amphetamines Screen Negative U Methamphetamines Scrn Negative U Benzodiazepines Scrn Negative Urine Cocaine Screen Negative U Marijuana (THC) Screen Negative Ur Drug Screen Comment See Note Ethyl Alcohol < 0.01 L Lab Acknowledgement Discharge Plan Discharge Disposition: Home, Self-Care Date of Admission: 07/25/22 16:44 Attending Provider on Discharge: Hawa Mishra Primary Care Provider: Kacie Munguia Condition: Improved Anticipated Discharge Date/Time: 07/26/22 10:42 Discharge Medications: Continued memantine 10 mg tablet 10 mg PO BID ondansetron 4 mg tablet,disintegrating 4 mg PO Q8H PRN Trulicity 1.5 mg/0.5 mL pen injector 3 mg subcut QWEEK metformin 500 mg tablet extended release 24 hr 500 mg PO BID simvastatin 40 mg tablet 40 mg PO HS quetiapine 25 mg tablet 25 mg PO HS metoprolol succinate [Toprol XL] 25 mg tablet extended release 24 hr 25 mg PO DAILY calcium carbonate 500 mg calcium (1,250 mg) tablet 500 mg PO TID donepezil 10 mg tablet 10 mg PO HS ferrous sulfate 325 mg (65 mg iron) tablet 325 mg PO BID hydrocodone-acetaminophen 5-325 mg tablet 1 tab PO Q6H PRN aspirin 81 mg tablet,delayed release (DR/EC) 81 mg PO DAILY potassium chloride 20 mEq packet 20 meq PO BID nystatin 100,000 unit/gram cream 1 applic topical PRN Patient Comments: TO DERMATITIS UNDER BILATERAL BREASTS epinephrine [EpiPen] 0.3 mg/0.3 mL auto-injector 0.3 ml IM PRN PRN Patient Comments: ANAPHYLAXIS Rx Instructions: do not exceed 3 doses per episode Discontinued zolpidem 5 mg tablet 5 mg PO HS PRN Discharge Orders: Discharge Order (Routine); Ordered 07/26/22 Ordered By: Hawa Mishra Patient Education: Altered Mental Status (GEN) Additional Instructions: Our team recommends NO driving until you have a formal evaluation with Occupational Therapy (Dr. Munguia can refer you). The [employer] program may be a nice option for you for transportation ([phone]). I would also recommend you NOT take Ambien any more for sleep (this can be very sedating and affect your memory further). No other medication changes were made during stay. Activity Level: No strenuous activity Discharge Diet: Regular Follow Up Appointments: [facility] [place] [Outside] - 08/02/22 11:10 am ([place] - [place] with Dr. Hollis Macedo, with discuss driving evaluation referral.) Kacie Munguia MD [Primary Care Provider] - 08/02/22 11:10 am (Please see Dr. Munguia in 5-10 days for hospital f/u, driving evaluation referral (clinic number [phone]). Dr. Munguia not available until August. Appointment scheduled with Dr. Macedo) Forms: [employer] Info Instructions
[2022-07-26 13:26] VITALS: BP 143/74; PULSE 62; RESP 16; TEMP 36.7
--- NOTE | 2022-07-26 13:28 | PC.NURSE ---
Pt discharged this afternoon to home at 1315. Pt's vitals WDL. Pt received scheduled meds and PRN Hydrocodone for chronic low back pain, pt stated pain 3/10 after admin and that it was way better. Pt very pleasant, oriented to questions. Tolerating diet, amb in room ind and in hallway w/ SBA. IV removed last night, not replaced per order from provider. D/c instructions reviewed with pt, questions answered. Family members (daughter, son-in-law, and friend) provided transportation for pt home.
--- NOTE | 2022-07-26 13:28 | NUTR.NU ---
RDN attempted to visit patient in room x 1 this morning to review carbohydrate counting for DMT2 diagnosis and protein intake for wound healing, but patient was unavailable. When RDN attempted to visit with patient again this afternoon, she was discharged already.
[2022-07-27 12:53] LABS: Folate, Serum 5.6 ng/mL (>=5.9)
[2022-07-28 16:35] LABS: Vitamin B1, Whole Blood 269 nmol/L (70-180)
== END 2022-07-26 13:15 | disposition home or self-care (01) ==
LOC: ED 16:18 → MEDSURG 16:44
PROVIDERS: Admitting Provider Family Medicine; Emergency Provider Family Medicine; PCP Family Medicine; Visit Provider Family Medicine
DX: R41.82 Altered mental status, unspecified (principal); G30.9 Alzheimer's disease, unspecified; S80.911A Unspecified superficial injury of right knee, initial encounter; F02.80 Dementia in other diseases classified elsewhere, unspecified severity, without behavioral disturbance, psychotic disturbance, mood disturbance, and anxiety; F05 Delirium due to known physiological condition; E11.649 Type 2 diabetes mellitus with hypoglycemia without coma; I11.0 Hypertensive heart disease with heart failure; I50.9 Heart failure, unspecified; R41.3 Other amnesia; Z79.84 Long term (current) use of oral hypoglycemic drugs; M54.9 Dorsalgia, unspecified; G89.29 Other chronic pain; E78.5 Hyperlipidemia, unspecified; F41.9 Anxiety disorder, unspecified; E66.01 Morbid (severe) obesity due to excess calories; Z68.42 Body mass index [BMI] 45.0-49.9, adult; F11.20 Opioid dependence, uncomplicated; Z72.820 Sleep deprivation; G47.33 Obstructive sleep apnea (adult) (pediatric); M54.30 Sciatica, unspecified side; J45.909 Unspecified asthma, uncomplicated; Z79.82 Long term (current) use of aspirin; Z91.030 Bee allergy status; Z98.890 Other specified postprocedural states; Z98.891 History of uterine scar from previous surgery; Z09 Encounter for follow-up examination after completed treatment for conditions other than malignant neoplasm; Z87.891 Personal history of nicotine dependence
CPT/HCPCS: 36415; 70450; 80053; 80306; 81001; 82077; 82140; 82550; 82607; 82746; 82962; 83036; 83605; 84425; 84443; 84484; 85025; 86140; 87086; 87186; 93005; 94761; 96372; 97116; 97161; 97165; 99213; 99284; 99285; G0378; A9270; J1650

== ENCOUNTER 2022-08-01 10:42 | Outpatient (CLI) | payer OTHER, SELFPAY | END 2022-08-01 10:43 | disposition home or self-care (01) | LOC: WOUND 10:42 | PROVIDERS: PCP Family Medicine; Visit Provider Surgery | DX: E11.622 Type 2 diabetes mellitus with other skin ulcer (principal); L97.812 Non-pressure chronic ulcer of other part of right lower leg with fat layer exposed; Z79.84 Long term (current) use of oral hypoglycemic drugs | CPT/HCPCS: 99212 ==

== ENCOUNTER 2022-08-15 11:15 | Outpatient (CLI) | payer OTHER, SELFPAY | END 2022-08-15 11:16 | disposition home or self-care (01) | LOC: WOUND 11:15 | PROVIDERS: PCP Family Medicine; Visit Provider Surgery | DX: E11.622 Type 2 diabetes mellitus with other skin ulcer (principal); L97.812 Non-pressure chronic ulcer of other part of right lower leg with fat layer exposed; Z79.84 Long term (current) use of oral hypoglycemic drugs | CPT/HCPCS: 99212 ==